=== PATIENT | female | born 1960 ===

== ENCOUNTER 2017-12-02 12:00 | Inpatient (IN) | payer OTHER ==
[~2017-12-02] VITALS: Ht 154.9 cm; Wt 72.1 kg
[2017-12-02] MEDS ORDERED: METFORMIN HCL500 MG PO (14:15)
[2017-12-02] MEDS ORDERED: DILTIAZEM 24HR240 MG PO (14:15)
[2017-12-02] MEDS ORDERED: HYDROCHLOROTHIA25 MG PO (14:16)
[2017-12-02] MEDS ORDERED: LEVO-T25 MCG PO (14:16)
[2017-12-02] MEDS ORDERED: PRAVASTATIN SOD40 MG PO (14:17)
[2017-12-02] MEDS ORDERED: GABAPENTIN100 MG PO (14:17)
[2017-12-02] MEDS ORDERED: NABUMETONE750 MG PO (14:17)
[2017-12-02] MEDS ORDERED: BACLOFEN20 MG PO (14:18)
[2017-12-14] MEDS ORDERED: PERCOCET 5-3251 EACH PO (09:42)
[2017-12-14] MEDS ORDERED: DOCUSATE SODIU100 MG PO (09:42)
[2017-12-14] MEDS ORDERED: CLONAZEPAM1 MG PO (09:42)
== END 2017-12-14 12:59 | disposition home or self-care (01) | DRG 473 ==
LOC: O/R 12-13 04:55 → SURG 12-13 09:30 → PED 12-13 10:59 → SURG 12-13 12:00 → PED 12-14 12:59
PROVIDERS: Orthopaedic Surgery Orthopaedic Surgery of the Spine
PROC: 0RG20A0 Fusion of 2 or more Cervical Vertebral Joints with Interbody Fusion Device, Anterior Approach, Anterior Column, Open Approach (ICD-10-PCS; 2017-12-13)
PROC: 0RT30ZZ Resection of Cervical Vertebral Disc, Open Approach (ICD-10-PCS; principal; 2017-12-13 09:30)
DX: M47.12 Other spondylosis with myelopathy, cervical region (principal); E11.9 Type 2 diabetes mellitus without complications; I10 Essential (primary) hypertension; E03.8 Other specified hypothyroidism; M50.123 Cervical disc disorder at C6-C7 level with radiculopathy